=== PATIENT | male | born 1935 | race African-American/Black ===

== ENCOUNTER → 2016-09-18 | Outpatient (CLI) | payer MEDICARE, OTHER ==
--- NOTE | ~2016-09-18 | CR151 ---
[facility] A Service of [facility] & [facility] / [facility] RADIOLOGY TEXT RESULTS PATIENT: JUAN MONTILLA LOCATION: [facility] : 34 UNIT #: [id number] AGE: [address]: Jessica Pang MD SEX: M ORDER DR: [id number] [facility] [address] [place], [place] [address] [id number] O MR#: [id number] Acc #: [id number] NAME: JUAN MONTILLA : 1935 SEX: M STUDY DATE/TIME: 09/18/2016 13:04 UNIT: [facility] ROOM: STUDY DESCRIPTION: CR Hip Min 2 Views Rt Attending Physician: Jessica Pang M.D. Referring Physician: Jessica Pang M.D. Ordering Physician: Jessica Pang M.D. Primary Care Physician: Jessica Pang M.D. MEDICAL IMAGING REPORT This report is preliminary unless electronic signature is present EXAM Right hip 2 views 09/18/2016 1304 hours. HISTORY 81-year-old man complaining of right hip pain and back pain for 1 week. No acute injury. FINDINGS AP pelvis and a frog lateral view right hip demonstrate overall normal bone density. There is mild joint space loss at both hips with no significant spurring or fracture. Atherosclerotic calcifications are present. IMPRESSION Mild joint space loss and spurring at both hips. No fracture seen. Dictated by... Chio Lopez M.D. THIS IS AN ELECTRONICALLY VERIFIED REPORT Chio Lopez M.D. at 09/19/2016 5:50 PM Lex TD: 09/19/2016 14:48 JOB #: [id number] MEDICAL IMAGING REPORT Page 1 of 1 COPY
--- NOTE | ~2016-09-18 | CR184 ---
[facility] A Service of [facility] & [facility] RADIOLOGY TEXT RESULTS PATIENT: JUAN MONTILLA LOCATION: [facility] : 34 UNIT #: [id number] AGE: [address]: Jessica Pang MD SEX: M ORDER DR: [id number] [facility] [address] [place], [place] [address] [id number] O MR#: [id number] Acc #: [id number] NAME: JUAN MONTILLA : 1935 SEX: M STUDY DATE/TIME: 09/18/2016 13:03 UNIT: [facility] ROOM: STUDY DESCRIPTION: CR Lumbar Spine Min 4 Views Attending Physician: Jessica Pang M.D. Referring Physician: Jessica Pang M.D. Ordering Physician: Jessica Pang M.D. Primary Care Physician: Jessica Pang M.D. MEDICAL IMAGING REPORT This report is preliminary unless electronic signature is present EXAM Lumbar spine series with oblique views 09/18/2016 1303 hours CLINICAL HISTORY 81-year-old man with history of chronic low back pain, complaining of worsening low back pain and bilateral hip pain for 1 week. Patient walks on treadmill frequently. COMPARISON Abdominal film 08/04/2008. No prior lumbar spine series. FINDINGS AP, lateral, cone lateral view of the lumbosacral junction and bilateral oblique views were performed. The bones appear osteopenic with no compression fracture. Vertebral body and disc heights are remarkable only for disc height loss at L5-S1. There is multilevel facet arthropathy at the L3-4, 4-5 and 5-1 levels. No pars defects seen. Sacrum and sacroiliac joints appear normal. IMPRESSION 1. Mild disc height loss at L5-S1 with no compression fracture. 2. Moderate facet arthropathy L3-4, 4-5 and 5-1 bilaterally. No pars defects. Diffuse atherosclerotic changes of the abdominal aorta. Dictated by... Chio Lopez M.D. THIS IS AN ELECTRONICALLY VERIFIED REPORT Chio Lopez M.D. at 09/19/2016 5:50 PM MIN/kai TD: 09/19/2016 15:25 [facility] A Service of [facility] & [facility] RADIOLOGY TEXT RESULTS PATIENT: JUAN MONTILLA LOCATION: [facility] #: [id number] : 33 UNIT #: [id number] AGE: [address]: Jessica Pang MD SEX: M ORDER DR: JOB #: [id number] MEDICAL IMAGING REPORT Page 1 of 1 COPY
--- NOTE | ~2016-09-18 | CR150 ---
[facility] A Service of [facility] & [facility] RADIOLOGY TEXT RESULTS PATIENT: JUAN MONTILLA LOCATION: [facility] : 34 UNIT #: [id number] AGE: [address]: Jessica Pang MD SEX: M ORDER DR: [id number] [facility] [address]. [place], [place] [address] [id number] O MR#: [id number] Acc #: [id number] NAME: JUAN MONTILLA : 1935 SEX: M STUDY DATE/TIME: 09/18/2016 13:04 UNIT: [facility] ROOM: STUDY DESCRIPTION: CR Hip Min 2 Views Lt Attending Physician: Jessica Pang M.D. Referring Physician: Jessica Pang M.D. Ordering Physician: Jessica Pang M.D. Primary Care Physician: Jessica Pang M.D. MEDICAL IMAGING REPORT This report is preliminary unless electronic signature is present EXAM Left hip, 09/18/2016 13:04 hours HISTORY One week history of low back pain and bilateral hip pain. No acute injury. COMPARISON None FINDINGS AP pelvis and frog lateral view left hip demonstrate mild bilateral hip joint space loss and spurring. There is no fracture. Atherosclerotic calcifications are present. IMPRESSION Mild joint space loss and spurring at both hips. No fracture seen. Dictated by... Chio Lopez M.D. THIS IS AN ELECTRONICALLY VERIFIED REPORT Chio Lopez M.D. at 09/19/2016 5:50 PM Gerda TD: 09/19/2016 14:50 JOB #: [id number] MEDICAL IMAGING REPORT Page 1 of 1 COPY
== END | disposition home or self-care (01) ==
LOC: CRAD 12:31
DX: M54.5 Low back pain (principal); G89.29 Other chronic pain; M16.11 Unilateral primary osteoarthritis, right hip; M76.891 Other specified enthesopathies of right lower limb, excluding foot; M76.892 Other specified enthesopathies of left lower limb, excluding foot; M46.96 Unspecified inflammatory spondylopathy, lumbar region
CPT/HCPCS: 72110; 73502